=== PATIENT | female | born 1985 | race Caucasian/White ===

== ENCOUNTER 2018-04-17 02:07 | Emergency (ER) | payer MEDICAID ==
[~2018-04-17] VITALS: Ht 149.9 cm; Wt 45.4 kg
[2018-04-17 02:10] VITALS: BP 119/84
[2018-04-17] MEDS ORDERED: ONDANSETRON 4 MG TAB.RAPDIS ONE (03:27)
[2018-04-17] MEDS ORDERED: ONDANSETRON 4 MG TAB.RAPDIS SL ONE (03:30)
== END 2018-04-17 04:59 | disposition home or self-care (01) ==
LOC: ER 02:15
DX: R11.2 Nausea with vomiting, unspecified (principal); J02.9 Acute pharyngitis, unspecified; H91.90 Unspecified hearing loss, unspecified ear; R47.01 Aphasia
CPT/HCPCS: 86403-TC; 87070-TC; 87400; A4606; Q0162; Z7610